=== PATIENT | female | born 1970 | race Caucasian/White ===

== ENCOUNTER 2024-01-31 14:41 | Emergency (ER) | payer MEDICAID ==
[~2024-01-31] VITALS: Ht 165.1 cm; Wt 79.5 kg
[~2024-01-31 14:41] MED LIST: CLIN150C2 PO; HYDR1TAB PO; NO HOME MEDS
[2024-01-31 14:53] VITALS: TEMP 98.8
[2024-01-31] MEDS: ondansetron 4mg rapidly disintigrating tab PO ONE (16:19)
[2024-01-31] MEDS: HYDROcodone/acetaminophen 5mg/325mg tablet PO ONE (16:19)
[2024-01-31 17:19] VITALS: BP 134/78; PULSE 78; RESP 16; O2SAT 98
[2024-01-31] MEDS ORDERED: HYDR-3972 PO (17:29)
== END 2024-01-31 17:22 | disposition home or self-care (01) ==
LOC: ER 14:42
DX: S05.11XA Contusion of eyeball and orbital tissues, right eye, initial encounter (principal); R51.9 Headache, unspecified; Z88.5 Allergy status to narcotic agent; Z79.2 Long term (current) use of antibiotics; Z79.899 Other long term (current) drug therapy; Z90.49 Acquired absence of other specified parts of digestive tract; Z98.51 Tubal ligation status; Y08.89XA Assault by other specified means, initial encounter; Y93.89 Activity, other specified; Y92.89 Other specified places as the place of occurrence of the external cause; Y99.8 Other external cause status
CPT/HCPCS: 70486; 99284